=== PATIENT | female | born 1975 | race American Indian/Alaskan Native ===

== ENCOUNTER 2017-07-25 00:27 | Emergency (ER) | payer SELFPAY ==
[2017-07-25 01:21] LABS: Basophils % (Auto) 0.7 % (0.0-1.8); Eosinophils % (Auto) 2.1 % (0.0-4.3); Hematocrit 36.8 % (30.3-42.9); Hemoglobin 12.4 gm/dl (10.1-14.3); Mean Corpuscular HGB Conc 34 % (30-34); Mean Corpuscular Hemoglobin 27 pg (28-32); Mean Corpuscular Volume 80 fl (79-97); Platelet Count 213 K/mm3 (140-440); Red Blood Count 4.59 M/mm3 (3.65-5.03); Red Cell Distribution Width 12.7 % (13.2-15.2); White Blood Count 5.7 K/mm3 (4.5-11.0)
[2017-07-25 01:37] LABS: Alanine Aminotransferase 12 units/L (7-56); Albumin 4.4 g/dL (3.9-5); Albumin/Globulin Ratio 1.3 %; Alkaline Phosphatase 66 units/L (35-129); Anion Gap 18 mmol/L; BUN/Creatinine Ratio 14.28; Blood Urea Nitrogen 10 mg/dL (7-17); Calcium 9.4 mg/dL (8.4-10.2); Carbon Dioxide 25 mmol/L (22-30); Chloride 100.3 mmol/L (98-107); Glucose 108 mg/dL (65-100); Lipase 32 units/L (13-60); Potassium 3.7 mmol/L (3.6-5.0); Sodium 140 mmol/L (137-145); Total Protein 7.9 g/dL (6.3-8.2)
[2017-07-25 02:03] LABS: Bacteria,Urine 2+ /HPF (Negative); Bilirubin,Urine NEG (Negative); Blood,Urine NEG (Negative); Ketones,Urine TR mg/dL (Negative); Leukocyte Esterase,Urine MOD (Negative); Mucus,Urine FEW /HPF; Nitrite,Urine NEG (Negative); Protein,Urine <15 mg/dL mg/dL (Negative)
[2017-07-25] MEDS ORDERED: TORADOL IM ONE (09:52)
[2017-07-25] MEDS ORDERED: ULTRAM PO ONE (09:52)
[2017-07-25] MEDS ORDERED: MACROBID PO ONE (09:52)
--- NOTE | 2017-07-25 11:57 | Emergency Department Report ---
ED Female HPI - General Chief complaint: Abdominal Pain Stated complaint: SKIN RASH Time Seen by Provider: 07/25/17 09:42 Source: patient Mode of arrival: Ambulatory Limitations: No Limitations - History of Present Illness Initial comments: 41-year-old female with a past medical history is as it has anything alert pain 4 days. Pain is a intermittent stabbing pain worse with palpation. Radial is 6/10 in intensity. No relieving factors. Positive bowel older to her urine but she denies dysuria, frequency, fever, nausea, vomiting, or discharge. The last 4 days patient has had a rash that seems to be spreading. Rash is mildly pruritic. PMD: None - Related Data Previous Rx's Medication Instructions Recorded Last Taken Type Ibuprofen [Motrin] 800 mg PO Q8HR PRN #30 tablet 07/25/17 Unknown Rx Nitrofurantoin [place]/M-Cryst 100 mg PO Q12HR #14 capsule 07/25/17 Unknown Rx [Macrobid CAP] traMADol [Ultram 50 MG tab] 50 mg PO Q6HR PRN #20 tablet 07/25/17 Unknown Rx Allergies Allergy/AdvReac Type Severity Reaction Status Date / Time No Known Allergies Allergy Verified 07/25/17 00:36 ED Review of Systems ROS: Stated complaint: SKIN RASH Other details as noted in HPI Comment: All other systems reviewed and negative Other: Constitutional: No fevers chills Eyes: No eye pain visual changes ENT: No ear pain or throat pain Neck: Denies pain Respiratory: Denies cough wheezing shortness of breath Cardiovascular: Denies chest pain, palpitations, syncope GI: as per hpi : Denies dysuria Musculoskeletal: Denies back pain Skin: As per HPI Neurologic: Denies headache, numbness, weakness Psychiatric: Denies suicidal ideation, hallucinations ED Past Medical Hx - Past Medical History Previous Medical History?: No - Surgical History Past Surgical History?: No - Social History Smoking Status: Never Smoker Substance Use Type: None - Medications Home Medications: Home Medications Medication Instructions Recorded Confirmed Last Taken Type Ibuprofen [Motrin] 800 mg PO Q8HR PRN #30 tablet 07/25/17 Unknown Rx Nitrofurantoin [place]/M-Cryst 100 mg PO Q12HR #14 capsule 07/25/17 Unknown Rx [Macrobid CAP] traMADol [Ultram 50 MG tab] 50 mg PO Q6HR PRN #20 tablet 07/25/17 Unknown Rx ED Physical Exam - General Limitations: No Limitations - Other Other exam information: General: No limitations, patient is alert in no acute distress Head exam: Atraumatic, normocephalic Eyes exam: Normal appearance ENT: Moist mucous membrane, normal oropharynx Neck exam: Normal inspection, full range of motion, no meningismus nontender Respiratory exam: Clear to auscultation bilateral, no wheezes, rales, crackles Cardiovascular: Normal rate and rhythm, normal heart sounds Abdomen: Soft, nondistended, suprapubic tenderness with normal bowel sounds, no rebound, or guarding Extremity: Full range of motion normal inspection no deformity Back: Normal Inspection, full range of motion, no tenderness Neurologic: Alert, oriented x3, cranial nerves intact, no motor or sensory deficit Psychiatric: normal affect, normal mood Skin: Scattered areas of raised plaque-like circular dark discolored lesions. Mildly pruritic. No warmth, or erythema. ED Course Vital Signs 07/25/17 07/25/17 07/25/17 00:32 00:36 08:51 Temperature 98.1 F 98.1 F Pulse Rate 63 63 Respiratory 18 18 18 Rate Blood Pressure 117/75 117/75 O2 Sat by Pulse 97 97 100 Oximetry 07/25/17 07/25/17 08:56 12:00 Temperature Pulse Rate 73 73 Respiratory 18 18 Rate Blood Pressure 123/73 108/71 O2 Sat by Pulse 100 100 Oximetry - Reevaluation(s) Reevaluation #1: 07/25/17 Patient received Macrobid and Toradol ED Medical Decision Making - Lab Data Result diagrams: 07/25/17 00:49 07/25/17 00:49 Lab Results 07/25/17 07/25/17 07/25/17 Range/Units 00:49 00:49 00:49 WBC 5.7 (4.5-11.0) K/mm3 RBC 4.59 (3.65-5.03) M/mm3 Hgb 12.4 (10.1-14.3) gm/dl Hct 36.8 (30.3-42.9) % MCV 80 (79-97) fl MCH 27 L (28-32) pg MCHC 34 (30-34) % RDW 12.7 L (13.2-15.2) % Plt Count 213 (140-440) K/mm3 Lymph % (Auto) 33.9 (13.4-35.0) % [place] % (Auto) 6.7 (0.0-7.3) % Eos % (Auto) 2.1 (0.0-4.3) % Baso % (Auto) 0.7 (0.0-1.8) % Lymph # 1.9 (1.2-5.4) K/mm3 Butler # 0.4 (0.0-0.8) K/mm3 Eos # 0.1 (0.0-0.4) K/mm3 Baso # 0.0 (0.0-0.1) K/mm3 Seg Neutrophils % 56.6 (40.0-70.0) % Seg Neutrophils # 3.2 (1.8-7.7) K/mm3 Sodium 140 (137-145) mmol/L Potassium 3.7 (3.6-5.0) mmol/L Chloride 100.3 (98-107) mmol/L Carbon Dioxide 25 (22-30) mmol/L Anion Gap 18 mmol/L BUN 10 (7-17) mg/dL Creatinine 0.7 (0.7-1.2) mg/dL Estimated GFR > 60 ml/min BUN/Creatinine Ratio 14.28 % Glucose 108 H (65-100) mg/dL Calcium 9.4 (8.4-10.2) mg/dL Total Bilirubin 0.30 (0.1-1.2) mg/dL AST 15 (5-40) units/L ALT 12 (7-56) units/L Alkaline Phosphatase 66 (35-129) units/L Total Protein 7.9 (6.3-8.2) g/dL Albumin 4.4 (3.9-5) g/dL Albumin/Globulin Ratio 1.3 % Lipase 32 (13-60) units/L HCG, Qual Negative (Negative) Urine Color (Yellow) Urine Turbidity (Clear) Urine pH (5.0-7.0) Ur Specific [employer] (1.003-1.030) Urine Protein (Negative) mg/dL Urine Glucose (UA) (Negative) mg/dL Urine Ketones (Negative) mg/dL Urine Blood (Negative) Urine Nitrite (Negative) Urine Bilirubin (Negative) Urine Urobilinogen (<2.0) mg/dL Ur Leukocyte Esterase (Negative) Urine WBC (Auto) (0.0-6.0) /HPF Urine RBC (Auto) (0.0-6.0) /HPF U Epithel Cells (Auto) (0-13.0) /HPF Urine Bacteria (Auto) (Negative) /HPF Urine Mucus /HPF 07/25/17 Range/Units 01:18 WBC (4.5-11.0) K/mm3 RBC (3.65-5.03) M/mm3 Hgb (10.1-14.3) gm/dl Hct (30.3-42.9) % MCV (79-97) fl MCH (28-32) pg MCHC (30-34) % RDW (13.2-15.2) % Plt Count (140-440) K/mm3 Lymph % (Auto) (13.4-35.0) % [place] % (Auto) (0.0-7.3) % Eos % (Auto) (0.0-4.3) % Baso % (Auto) (0.0-1.8) % Lymph # (1.2-5.4) K/mm3 [place] # (0.0-0.8) K/mm3 Eos # (0.0-0.4) K/mm3 Baso # (0.0-0.1) K/mm3 Seg Neutrophils % (40.0-70.0) % Seg Neutrophils # (1.8-7.7) K/mm3 Sodium (137-145) mmol/L Potassium (3.6-5.0) mmol/L Chloride (98-107) mmol/L Carbon Dioxide (22-30) mmol/L Anion Gap mmol/L BUN (7-17) mg/dL Creatinine (0.7-1.2) mg/dL Estimated GFR ml/min BUN/Creatinine Ratio % Glucose (65-100) mg/dL Calcium (8.4-10.2) mg/dL Total Bilirubin (0.1-1.2) mg/dL AST (5-40) units/L ALT (7-56) units/L Alkaline Phosphatase (35-129) units/L Total Protein (6.3-8.2) g/dL Albumin (3.9-5) g/dL Albumin/Globulin Ratio % Lipase (13-60) units/L HCG, Qual (Negative) Urine Color Yellow (Yellow) Urine Turbidity Slightly-cloudy (Clear) Urine pH 6.0 (5.0-7.0) Ur Specific [employer] 1.016 (1.003-1.030) Urine Protein <15 mg/dl (Negative) mg/dL Urine Glucose (UA) Neg (Negative) mg/dL Urine Ketones Tr (Negative) mg/dL Urine Blood Neg (Negative) Urine Nitrite Neg (Negative) Urine Bilirubin Neg (Negative) Urine Urobilinogen 4.0 (<2.0) mg/dL Ur Leukocyte Esterase Mod (Negative) Urine WBC (Auto) 28.0 H (0.0-6.0) /HPF Urine RBC (Auto) 3.0 (0.0-6.0) /HPF U Epithel Cells (Auto) 5.0 (0-13.0) /HPF Urine Bacteria (Auto) 2+ (Negative) /HPF Urine Mucus Few /HPF - Medical Decision Making Plan to discharge patient home with treatment for UTI given positive urine findings. I'm unsure of the cause of her rash at this time but it does not appear to be life-threatening. Patient will be advised to follow up with dermatology . - Differential Diagnosis uti, cervicitis, vaginitis, tinea,, pityriasis, Critical Care Time: No Critical care attestation.: If time is entered above; I have spent that time in minutes in the direct care of this critically ill patient, excluding procedure time. ED Disposition Clinical Impression: UTI (urinary tract infection), Rash Disposition: DC-01 TO HOME OR SELFCARE Is pt being admited?: No Does the pt Need Aspirin: No Condition: Stable Instructions: Acute Rash (ED), Urinary Tract Infection in Women (ED) Additional Instructions: Take the medication as prescribed. Return if symptoms worsen. Follow-up with a manager motor for further evaluation of your rash. Also follow-up with the primary care doctor Prescriptions: Ibuprofen [Motrin] 800 mg PO Q8HR PRN #30 tablet PRN Reason: Pain Nitrofurantoin [place]/M-Cryst [Macrobid CAP] 100 mg PO Q12HR #14 capsule traMADol [Ultram 50 MG tab] 50 mg PO Q6HR PRN #20 tablet PRN Reason: Pain Referrals: PRIMARY CARE, [Primary Care Provider] - 3-5 Days Adarsh Vasques [Other] - 3-5 Days [facility] [Provider Group] - 3-5 Days Time of Disposition: 12:49
[2017-07-25 12:40] VITALS: BP 108/71
== END 2017-07-25 13:12 | disposition home or self-care (01) ==
LOC: ED 00:27
DX: N39.0 Urinary tract infection, site not specified (principal)
CPT/HCPCS: 36415; 80053; 81001; 83690; 84703; 85025; 96372; 99283; J1885

== ENCOUNTER 2018-08-25 20:29 | Emergency (ER) | payer MEDICAID ==
[2018-08-25 20:36] VITALS: BP 128/69
[2018-08-25] MEDS ORDERED: BENADRYL PO ONE (21:22)
[2018-08-25] MEDS ORDERED: ULTRAM PO ONE (21:22)
--- NOTE | 2018-08-25 21:28 | Emergency Department Report ---
ED Headache HPI - General Chief Complaint: Headache Stated Complaint: MIGRAINE Time Seen by Provider: 08/25/18 21:20 - History of Present Illness Initial Comments: pt is a 42 y/o aaf with who presents for right frontal headache that was initiated by right eye pain itching and discharge times this am, pain is 4/10 sharp aching right yellow green drainage, and blurred vision there is hx of headache in past same location with out eye drainage, there is no fever no chills no n/v mild photophobia no dizziness no light headedness pt drove self to ed is ambulatory with steady gait, Timing/Duration: 24 hours Quality: moderate Head Injury Location: frontal Recent Head Trauma: no recent headache/trauma, occasional headaches Associated Symptoms: other (eye irritation and drainage ) Allergies/Adverse Reactions: Allergies No Known Allergies Allergy (Verified 07/25/17 00:36) Home Medications: Ambulatory Orders Ibuprofen [Motrin] 800 mg PO Q8HR PRN #30 tablet 07/25/17 Nitrofurantoin [place]/M-Cryst [Macrobid CAP] 100 mg PO Q12HR #14 capsule 07/25/17 traMADol [Ultram 50 MG tab] 50 mg PO Q6HR PRN #20 tablet 07/25/17 Cetirizine HCl [ZyrTEC] 10 mg PO DAILY #30 capsule 08/25/18 Ibuprofen 800 mg PO TID PRN #30 tablet 08/25/18 Polymyxin B Sulf/Trimethoprim [Polytrim Eye Drops] 10 ml OP Q4H 10 Days #10 ml 08/25/18 ED Review of Systems ROS: Stated complaint: MIGRAINE Other details as noted in HPI Constitutional: denies: chills, fever Eyes: eye pain, eye discharge, other (blurred vision ) ENT: denies: ear pain, throat pain Respiratory: denies: cough, shortness of breath, wheezing Cardiovascular: denies: chest pain, palpitations Endocrine: no symptoms reported Gastrointestinal: denies: abdominal pain, nausea, diarrhea Genitourinary: denies: urgency, dysuria, discharge Musculoskeletal: denies: back pain, joint swelling, arthralgia Skin: denies: rash, lesions Neurological: headache. denies: weakness, numbness, paresthesias, abnormal gait , vertigo Psychiatric: denies: anxiety, depression Hematological/Lymphatic: denies: easy bleeding, easy bruising ED Past Medical Hx - Past Medical History Previous Medical History?: No - Surgical History Past Surgical History?: No - Social History Smoking Status: Never Smoker Substance Use Type: Alcohol - Medications Home Medications: Home Medications Medication Instructions Recorded Confirmed Last Taken Type Ibuprofen [Motrin] 800 mg PO Q8HR PRN #30 tablet 07/25/17 Unknown Rx Nitrofurantoin [place]/M-Cryst 100 mg PO Q12HR #14 capsule 07/25/17 Unknown Rx [Macrobid CAP] traMADol [Ultram 50 MG tab] 50 mg PO Q6HR PRN #20 tablet 07/25/17 Unknown Rx Cetirizine HCl [ZyrTEC] 10 mg PO DAILY #30 capsule 08/25/18 Unknown Rx Ibuprofen 800 mg PO TID PRN #30 tablet 08/25/18 Unknown Rx Polymyxin B Sulf/Trimethoprim 10 ml OP Q4H 10 Days #10 ml 08/25/18 Unknown Rx [Polytrim Eye Drops] ED Physical Exam - General Limitations: No Limitations General appearance: alert, in no apparent distress - Head Head exam: Present: atraumatic, normocephalic - Eye Eye exam: Present: PERRL, EOMI, conjunctival injection. Absent: nystagmus - Expanded Eye Exam Expanded Pupils: Regular, Round: Bilateral, Reactive: Bilateral Sclera/Conjunctival: Injection: Bilateral, Exudate: Right (yellow green drainage ) Anterior chamber: Normal Inspection: Bilateral Visual acuity (R) = 20/: 20 Visual acuity (L) = 20/: 20 IOP (R) in mmH IOP (L) in mmH - ENT ENT exam: Present: normal orophraynx, mucous membranes moist, TM's normal bilaterally, normal external ear exam - Neck Neck exam: Present: normal inspection, full ROM. Absent: tenderness, thyromegaly - Respiratory Respiratory exam: Present: normal lung sounds bilaterally, respiratory distress - Cardiovascular Cardiovascular Exam: Present: regular rate, normal rhythm. Absent: systolic murmur, diastolic murmur, rubs, gallop - GI/Abdominal GI/Abdominal exam: Present: soft, normal bowel sounds - Rectal Rectal exam: Present: deferred - Extremities Exam Extremities exam: Present: normal inspection - Back Exam Back exam: Present: normal inspection - Neurological Exam Neurological exam: Present: alert, oriented X3 - Psychiatric Psychiatric exam: Present: normal affect, normal mood - Skin Skin exam: Present: warm, dry, intact, normal color. Absent: rash ED Course Vital Signs 08/25/18 08/25/18 20:33 20:42 Temperature 99.1 F 99.1 F Pulse Rate 70 71 Respiratory 18 18 Rate Blood Pressure 128/69 128/69 O2 Sat by Pulse 98 98 Oximetry ED Medical Decision Making - Medical Decision Making this is conjunctivitis with headache pain is improved after eye exam vision s202 /0 bilat, no foreign body noted to eye exam mild conjunctiviitis eyelid inverted swept, IOP: 14mm/hg tonopen, right, no corneal abrasion on exam hill lamp headach is improving, plan: NSAIDS, Zyrtec, polytrim, follow up with opthalmology in 2-3 days follow up with pcp in 2-3 days pt verbalized agreement and understanding of discharge plan. Critical care attestation.: If time is entered above; I have spent that time in minutes in the direct care of this critically ill patient, excluding procedure time. ED Disposition Clinical Impression: Conjunctivitis Qualifiers: Conjunctivitis type: acute Acute conjunctivitis type: bacterial Laterality: right Qualified Code(s): H10.31 - Unspecified acute conjunctivitis, right eye Headache Qualifiers: Headache type: unspecified Headache chronicity pattern: acute headache Intractability: not intractable Qualified Code(s): R51 - Headache Disposition: DC-01 TO HOME OR SELFCARE Is pt being admited?: No Does the pt Need Aspirin: No Condition: Good Instructions: Conjunctivitis (ED), Acute Headache (ED) Prescriptions: Cetirizine HCl [ZyrTEC] 10 mg PO DAILY #30 capsule Ibuprofen 800 mg PO TID PRN #30 tablet PRN Reason: pain Polymyxin B Sulf/Trimethoprim [Polytrim Eye Drops] 10 ml OP Q4H 10 Days #10 ml Referrals: PRIMARY CARE,MD [Primary Care Provider] - 3-5 Days Forms: Work/School Release Form(ED) Time of Disposition: 21:39
== END 2018-08-25 21:46 | disposition home or self-care (01) ==
LOC: ED 20:29
DX: H10.31 Unspecified acute conjunctivitis, right eye (principal); R51 Headache
CPT/HCPCS: 99283

== ENCOUNTER 2019-03-05 09:35 | Emergency (ER) | payer SELFPAY ==
[2019-03-05] MEDS ORDERED: CLEOCIN 900 MG/50 mL 900 MG/50 ML BAG IV ONE (10:09)
[2019-03-05] MEDS ORDERED: NACL 0.9% 1000 ML 1,000 ML IV ONE (10:09)
[2019-03-05] MEDS ORDERED: DECADRON 20 MG in NACL 0.9% 50 ML IV STA (10:11)
[2019-03-05 10:41] LABS: Basophils % (Auto) 0.5 % (0.0-1.8); Eosinophils # (Auto) 0.1 K/mm3 (0.0-0.4); Eosinophils % (Auto) 0.6 % (0.0-4.3); Hematocrit 35.6 % (30.3-42.9); Hemoglobin 12.1 gm/dl (10.1-14.3); Lymphocytes # (Auto) 1.4 K/mm3 (1.2-5.4); Lymphocytes % (Auto) 14.2 % (13.4-35.0); Mean Corpuscular HGB Conc 34 % (30-34); Mean Corpuscular Volume 81 fl (79-97); Monocytes # (Auto) 0.7 K/mm3 (0.0-0.8); Monocytes % (Auto) 6.8 % (0.0-7.3); Platelet Count 221 K/mm3 (140-440); Red Cell Distribution Width 13.1 % (13.2-15.2)
[2019-03-05 10:42] LABS: BUN/Creatinine Ratio 10; Blood Urea Nitrogen 6 mg/dL (7-17); Hemolysis Index 7
[2019-03-05] MEDS ORDERED: ZOFRAN IV ONE (11:17)
[2019-03-05] MEDS ORDERED: TORADOL IV ONE (11:17)
[2019-03-05] MEDS ORDERED: MORPHINE IV ONE (11:17)
--- NOTE | 2019-03-05 12:39 | Cat Scan Report ---
PROCEDURE: CT NECK W CON TECHNIQUE: CT of the neck performed. IV contrast administered. Axial images and coronal and sagittal reformatted images were obtained. HISTORY: peritonsillar abscess COMPARISON: None FINDINGS: There is enlargement of the left tonsil. There is mucosal/submucosal edema involving the left orophar ynx and hypopharynx. There is also edematous enlargement of the uvula. There is some left parapharyng eal edema as well as some edema in the retropharyngeal region. No discrete abscess identified. The epiglottis may be minimally edematous as well. Parotid glands are symmetric and unremarkable. Submandibular glands are unremarkable. The paranasal sinuses are clear. Thyroid gland is unremarkable. IMPRESSION: There is some left tonsillar enlargement. There is a left sided oropharyngeal and hypoph aryngeal mucosal/submucosal edema as well as left-sided parapharyngeal and retropharyngeal edema. No abscess seen. The uvula is also edematous and enlarged. The epiglottis may be mildly edematous as wel l but not greatly enlarged. This document is electronically signed by Francoise Phillips MD., March 05 2019 12:37:32 PM ET
--- NOTE | 2019-03-05 12:59 | Emergency Department Report ---
ED General Adult HPI - General Chief complaint: Sore Throat Stated complaint: THROAT PAIN/CANT SWALLOW Time Seen by Provider: 03/05/19 10:01 Source: patient Mode of arrival: Ambulatory Limitations: No Limitations - History of Present Illness Initial comments: Ms. Juarez is a 43-year-old female presents with severe sore throat and trouble swallowing. She also has swelling in the left neck. Symptoms began one week ago with flulike symptoms. She had diarrhea vomiting generalized malaise. She also had a sick contact with influenza. She now over the last day has sore throat. -: Gradual, days(s) (1) Severity scale (0 -10): 5 Quality: aching Consistency: constant Worsens with: other (swallowing) Associated Symptoms: malaise - Related Data Previous Rx's Medication Instructions Recorded Last Taken Type Ibuprofen [Motrin] 800 mg PO Q8HR PRN #30 tablet 07/25/17 Unknown Rx Nitrofurantoin [place]/M-Cryst 100 mg PO Q12HR #14 capsule 07/25/17 Unknown Rx [Macrobid CAP] traMADol [Ultram 50 MG tab] 50 mg PO Q6HR PRN #20 tablet 07/25/17 Unknown Rx Cetirizine HCl [ZyrTEC] 10 mg PO DAILY #30 capsule 08/25/18 Unknown Rx Ibuprofen 800 mg PO TID PRN #30 tablet 08/25/18 Unknown Rx Polymyxin B Sulf/Trimethoprim 10 ml OP Q4H 10 Days #10 ml 08/25/18 Unknown Rx [Polytrim Eye Drops] HYDROcodone/APAP 5-325 [[place] 1 each PO Q6HR PRN #15 tablet 03/05/19 Unknown Rx 5/325] Penicillin V Potassium 500 mg PO QID 10 Days #40 tablet 03/05/19 Unknown Rx Allergies Allergy/AdvReac Type Severity Reaction Status Date / Time No Known Allergies Allergy Verified 03/05/19 09:36 ED Review of Systems ROS: Stated complaint: THROAT PAIN/CANT SWALLOW Other details as noted in HPI Comment: All other systems reviewed and negative Constitutional: chills, malaise. denies: fever ENT: throat pain Gastrointestinal: nausea, vomiting, diarrhea ED Past Medical Hx - Past Medical History Previous Medical History?: No - Surgical History Past Surgical History?: No - Social History Smoking Status: Never Smoker Substance Use Type: None - Medications Home Medications: Home Medications Medication Instructions Recorded Confirmed Last Taken Type Ibuprofen [Motrin] 800 mg PO Q8HR PRN #30 tablet 07/25/17 Unknown Rx Nitrofurantoin [place]/M-Cryst 100 mg PO Q12HR #14 capsule 07/25/17 Unknown Rx [Macrobid CAP] traMADol [Ultram 50 MG tab] 50 mg PO Q6HR PRN #20 tablet 07/25/17 Unknown Rx Cetirizine HCl [ZyrTEC] 10 mg PO DAILY #30 capsule 08/25/18 Unknown Rx Ibuprofen 800 mg PO TID PRN #30 tablet 08/25/18 Unknown Rx Polymyxin B Sulf/Trimethoprim 10 ml OP Q4H 10 Days #10 ml 08/25/18 Unknown Rx [Polytrim Eye Drops] HYDROcodone/APAP 5-325 [[place] 1 each PO Q6HR PRN #15 tablet 03/05/19 Unknown Rx 5/325] Penicillin V Potassium 500 mg PO QID 10 Days #40 tablet 03/05/19 Unknown Rx ED Physical Exam - General Limitations: No Limitations General appearance: alert, in no apparent distress - Head Head exam: Present: atraumatic, normocephalic - Eye Eye exam: Present: normal appearance - ENT ENT exam: Present: other (edematous deviated uvula left tonsillar edematous larger than right, exudates bilaterally ) - Neck Neck exam: Present: full ROM, lymphadenopathy (left submandibular). Absent: meningismus - Respiratory Respiratory exam: Present: normal lung sounds bilaterally. Absent: respiratory distress, wheezes, rales, rhonchi - Cardiovascular Cardiovascular Exam: Present: regular rate, normal rhythm, normal heart sounds. Absent: systolic murmur, diastolic murmur, rubs, gallop - GI/Abdominal GI/Abdominal exam: Present: soft, normal bowel sounds. Absent: distended, tenderness, guarding, rebound - Extremities Exam Extremities exam: Present: normal inspection - Back Exam Back exam: Present: normal inspection - Neurological Exam Neurological exam: Present: alert, oriented X3 - Psychiatric Psychiatric exam: Present: normal affect, normal mood - Skin Skin exam: Present: warm, dry, intact, normal color. Absent: rash ED Course Vital Signs 03/05/19 09:44 Temperature 99.3 F Pulse Rate 97 H Respiratory 16 Rate Blood Pressure 133/82 O2 Sat by Pulse 98 Oximetry ED Medical Decision Making - Lab Data Result diagrams: 03/05/19 10:10 03/05/19 10:10 - Radiology Data Radiology results: report reviewed Left tonsillar enlargement, pharyngeal uvula enlargement or retropharyngeal enlargement no abscess - Medical Decision Making Acute pharyngitis without peritonsillar or neck abscess. Prescribed penicillin and norco. Critical care attestation.: If time is entered above; I have spent that time in minutes in the direct care of this critically ill patient, excluding procedure time. ED Disposition Clinical Impression: Acute pharyngitis Disposition: DC- TO HOME OR SELFCARE Is pt being admited?: No Does the pt Need Aspirin: No Condition: Stable Instructions: Pharyngitis (ED) Prescriptions: HYDROcodone/APAP 5-325 [[place] 5/325] 1 each PO Q6HR PRN #15 tablet PRN Reason: Pain Penicillin V Potassium 500 mg PO QID 10 Days #40 tablet Referrals: CONRAD PECK MD [Primary Care Provider] - 3-5 Days Forms: Work/School Release Form(ED)
[2019-03-05 13:21] VITALS: BP 122/75
== END 2019-03-05 13:19 | disposition home or self-care (01) ==
LOC: ED 09:35
DX: J02.9 Acute pharyngitis, unspecified (principal); R19.7 Diarrhea, unspecified
CPT/HCPCS: 36415; 70491; 80048; 85025; 96365; 96367; 96375; 99284; J1100; J1885; J2270; J2405; J7030; Q9967

== ENCOUNTER 2019-04-07 22:37 | Emergency (ER) | payer OTHER, MEDICAID ==
[2019-04-07 23:38] VITALS: BP 130/79
[2019-04-08] MEDS ORDERED: TORADOL IM ONE (03:02)
[2019-04-08] MEDS ORDERED: DECADRON IM ONE (03:02)
--- NOTE | 2019-04-08 05:17 | Emergency Department Report ---
ED Neck Pain/Injury HPI - General Chief Complaint: Neck Pain/Injury Stated Complaint: STIFF NECK/PAIN, HEADACHE Time Seen by Provider: 04/08/19 02:45 Source: patient Mode of arrival: Ambulatory Limitations: No Limitations - History of Present Illness Initial Comments: Patient is a 43-year-old, AA female with no past medical history presents to the ED with complaint of acute onset nontraumatic severe neck pain for the last 3 days. Patient states that she is unable to perform any activities range of motion with her neck especially turning on the right. Patient denies fall, traumatic injury, heavy lifting, as it is, headache, chest pain, shortness of breath, numbness and tingling of the upper extremities bilaterally, change in vision, nausea and vomiting. Patient states that she's been taking [id number] pain medications with no relief. MD Complaint: neck pain -: Sudden, days(s) (3) Place: home Radiation: right lateral, head, right shoulder Severity: constant Severity scale (0 -10): 8 Quality: burning, sharp, aching Consistency: constant Improves With: none Worsens With: movement of neck Context: unknown (spontaneous) Associated Symptoms: headache, tingling. denies: fever, numbness, weakness, difficulty walking, swollen glands, difficulty swallowing, nausea, vomiting Treatments Prior to Arrival: Acetaminophen - Related Data Previous Rx's Medication Instructions Recorded Last Taken Type Ibuprofen [Motrin] 800 mg PO Q8HR PRN #30 tablet 07/25/[address] [place]/M-Cryst 100 mg PO Q12HR #14 capsule 07/25/17 Unknown Rx [Macrobid CAP] traMADol [Ultram 50 MG tab] 50 mg PO Q6HR PRN #20 tablet 07/25/17 Unknown Rx Cetirizine HCl [ZyrTEC] 10 mg PO DAILY #30 capsule 08/25/18 Unknown Rx Ibuprofen 800 mg PO TID PRN #30 tablet 08/25/18 Unknown Rx Polymyxin B Sulf/Trimethoprim 10 ml OP Q4H 10 Days #10 ml 08/25/18 Unknown Rx [Polytrim Eye Drops] HYDROcodone/APAP 5-325 [[place] 1 each PO Q6HR PRN #15 tablet 03/05/19 Unknown Rx 5/325] Penicillin V Potassium 500 mg PO QID 10 Days #40 tablet 03/05/19 Unknown Rx Baclofen 20 mg PO Q8H PRN #30 tablet 04/08/19 Unknown Rx Ketorolac [Toradol] 10 mg PO Q8H PRN #20 tablet 04/08/19 Unknown Rx predniSONE [Deltasone] 60 mg PO QDAY #15 tab 04/08/19 Unknown Rx traMADol [Ultram] 50 mg PO Q6HR PRN #12 tablet 04/08/19 Unknown Rx Allergies Allergy/AdvReac Type Severity Reaction Status Date / Time No Known Allergies Allergy Verified 03/05/19 09:36 ED Review of Systems ROS: Stated complaint: STIFF NECK/PAIN, HEADACHE Other details as noted in HPI Comment: All other systems reviewed and negative Constitutional: no symptoms reported, see HPI. denies: chills, diaphoresis, fever, malaise Eyes: as per HPI. denies: eye pain, eye discharge, vision change ENT: as per HPI. denies: ear pain, throat pain, dental pain, hearing loss Respiratory: no symptoms reported, see HPI. denies: cough, orthopnea, shortness of breath, SOB with exertion, SOB at rest Cardiovascular: as per HPI. denies: chest pain, palpitations, dyspnea on exertion, orthopnea, edema, syncope, paroxysmal nocturnal dyspnea Endocrine: no symptoms reported, see HPI. denies: flushing, intolerance to heat, increased hunger, increased thirst, increased urine, unexplained weight gain Gastrointestinal: as per HPI. denies: abdominal pain, nausea, vomiting, diarrhea, constipation Genitourinary: as per HPI. denies: urgency, dysuria, frequency, hematuria, abnormal menses Musculoskeletal: as per HPI, arthralgia (neck pain), other (neck pain that radiates to right shoulder and upper back). denies: back pain, joint swelling Skin: as per HPI. denies: rash, lesions, change in color, change in hair/nails Neurological: as per HPI, headache, paresthesias (left forearm and shoulder tingling sensations). denies: weakness, numbness, confusion, abnormal gait, vertigo, other Psychiatric: as per HPI. denies: anxiety, depression, visual hallucinations Hematological/Lymphatic: as per HPI ED Past Medical Hx - Past Medical History Previous Medical History?: No - Surgical History Past Surgical History?: No - Social History Smoking Status: Light Tobacco Smoker Substance Use Type: Alcohol - Medications Home Medications: Home Medications Medication Instructions Recorded Confirmed Last Taken Type Ibuprofen [Motrin] 800 mg PO Q8HR PRN #30 tablet 07/25/[address] [place]/M-Cryst 100 mg PO Q12HR #14 capsule 07/25/17 Unknown Rx [Macrobid CAP] traMADol [Ultram 50 MG tab] 50 mg PO Q6HR PRN #20 tablet 07/25/17 Unknown Rx Cetirizine HCl [ZyrTEC] 10 mg PO DAILY #30 capsule 08/25/18 Unknown Rx Ibuprofen 800 mg PO TID PRN #30 tablet 08/25/18 Unknown Rx Polymyxin B Sulf/Trimethoprim 10 ml OP Q4H 10 Days #10 ml 08/25/18 Unknown Rx [Polytrim Eye Drops] HYDROcodone/APAP 5-325 [[place] 1 each PO Q6HR PRN #15 tablet 03/05/19 Unknown Rx 5/325] Penicillin V Potassium 500 mg PO QID 10 Days #40 tablet 03/05/19 Unknown Rx Baclofen 20 mg PO Q8H PRN #30 tablet 04/08/19 Unknown Rx Ketorolac [Toradol] 10 mg PO Q8H PRN #20 tablet 04/08/19 Unknown Rx predniSONE [Deltasone] 60 mg PO QDAY #15 tab 04/08/19 Unknown Rx traMADol [Ultram] 50 mg PO Q6HR PRN #12 tablet 04/08/19 Unknown Rx ED Physical Exam - General Limitations: No Limitations General appearance: alert, in no apparent distress - Head Head exam: Present: atraumatic, normocephalic, normal inspection - Eye Eye exam: Present: normal appearance, PERRL, EOMI Pupils: Present: normal accommodation - ENT ENT exam: Present: normal exam, normal orophraynx, mucous membranes moist, TM's normal bilaterally, normal external ear exam - Neck Neck exam: Present: normal inspection, tenderness (cervical paraspinal musculoskeletal tenderness with limited ROM due to pain). Absent: meningismus, full ROM (due to pain), lymphadenopathy, thyromegaly - Respiratory Respiratory exam: Present: normal lung sounds bilaterally. Absent: respiratory distress, wheezes, rales, chest wall tenderness, accessory muscle use, prolonged expiratory - Cardiovascular Cardiovascular Exam: Present: regular rate, normal rhythm, normal heart sounds - GI/Abdominal GI/Abdominal exam: Present: soft, normal bowel sounds. Absent: distended, tenderness, guarding, hyperactive bowel sounds, hypoactive bowel sounds, organomegaly - Rectal Rectal exam: Present: deferred - Extremities Exam Extremities exam: Present: normal inspection, full ROM, tenderness (mild right shoulder and arm tenderness), normal capillary refill. Absent: pedal edema, joint swelling, calf tenderness - Back Exam Back exam: Present: normal inspection, tenderness (Mild upper posterior thoracic paraspinal tenderness), muscle spasm, paraspinal tenderness. Absent: CVA tenderness (R), CVA tenderness (L), vertebral tenderness - Neurological Exam Neurological exam: Present: alert, oriented X3, CN II-XII intact, normal gait, reflexes normal - Psychiatric Psychiatric exam: Present: normal affect - Skin Skin exam: Present: warm, dry, intact ED Course Vital Signs 04/07/19 23:20 Temperature 98.2 F Pulse Rate 73 Respiratory 18 Rate Blood Pressure 130/79 O2 Sat by Pulse 96 Oximetry - Reevaluation(s) Reevaluation #1: 04/08/19 05:20 Patient is alert and oriented 3 and is not in distress. Patient was treated for pain in the ED for acute torticollis. On reevaluation, patient's pain is well controlled, patient fell asleep in the ED and slept well and no d ifficulties. Patient's symptoms are likely due to acute muscle strain of the neck or torticollis. Patient was discharged home on pain medications and muscle relaxants and advised to follow up with her primary care physician in 5-7 days for reevaluation. Patient was advised to return to the ED immediately if symptoms get worse. ED Medical Decision Making - Medical Decision Making Patient is alert and oriented 3 and is not in distress. Patient was treated for pain in the ED for acute torticollis. On reevaluation, patient's pain is well controlled, patient fell asleep in the ED and slept well and no difficulties. Patient's symptoms are likely due to acute muscle strain of the neck or torticollis. Patient was discharged home on pain medications and muscle relaxants and advised to follow up with her primary care physician in 5-7 days for reevaluation. Patient was advised to return to the ED immediately if symptoms get worse. - Differential Diagnosis Acute torticollis, Muscle spasm neck Critical care attestation.: If time is entered above; I have spent that time in minutes in the direct care of this critically ill patient, excluding procedure time. ED Disposition Clinical Impression: Cervical paraspinal muscle spasm, Acute torticollis Disposition: TO HOME OR SELFCARE Is pt being admited?: No Does the pt Need Aspirin: No Condition: Stable Instructions: Spasmodic Torticollis (ED), Cervical Sprain (ED) Additional Instructions: Take medications with food, drink plenty of fluids and follow-up with your primary care physician in 5-7 days for reevaluation. Return to the ED immediately if symptoms get worse. Prescriptions: Baclofen 20 mg PO Q8H PRN #30 tablet PRN Reason: Spasms predniSONE [Deltasone] 60 mg PO QDAY #15 tab Ketorolac [Toradol] 10 mg PO Q8H PRN #20 tablet PRN Reason: Pain traMADol [Ultram] 50 mg PO Q6HR PRN #12 tablet PRN Reason: Pain Referrals: JEFFREY HOWARD MD [Primary Care Provider] - 3-5 Days Time of Disposition: 05:25 Print Language: RUSSIAN
== END 2019-04-08 05:35 | disposition home or self-care (01) ==
LOC: ED 22:37
DX: M43.6 Torticollis (principal); M25.511 Pain in right shoulder; F17.200 Nicotine dependence, unspecified, uncomplicated; R51 Headache; R20.2 Paresthesia of skin
CPT/HCPCS: 96372; 99282; J1100; J1885

== ENCOUNTER 2021-01-05 19:42 | Emergency (ER) | payer MEDICAID, OTHER ==
[2021-01-05 19:59] VITALS: BP 108/65
--- NOTE | 2021-01-05 20:08 | Emergency Department Report ---
ED Female HPI - General Stated complaint: LOWER BACK/LEFT KNEE PAIN/DIZZINESS/BLEEDING Source: patient, RN notes reviewed Limitations: No Limitations - History of Present Illness Initial comments: pt is a 45 y/o aaf who presents for low back pain radiating to LLE. pt states dysuria , frequency, vaginal discharge brown malodorous, pt denies fever or chills , denies vaginal bleeding , no n/v LMP 2 months ago, there are no rel ieving factors MD Complaint: vaginal discharge, dysuria - Related Data Previous Rx's Medication Instructions Recorded Last Taken Type Ibuprofen [Motrin] 800 mg PO Q8HR PRN #30 tablet 07/25/17 Unknown Rx Nitrofurantoin [place]/M-Cryst 100 mg PO Q12HR #14 capsule 07/25/17 Unknown Rx [Macrobid CAP] traMADoL [Ultram 50 MG tab] 50 mg PO Q6HR PRN #20 tablet 07/25/17 Unknown Rx Cetirizine HCl [ZyrTEC] 10 mg PO DAILY #30 capsule 08/25/18 Unknown Rx Ibuprofen 800 mg PO TID PRN #30 tablet 08/25/18 Unknown Rx Polymyxin B Sulf/Trimethoprim 10 ml OP Q4H 10 Days #10 ml 08/25/18 Unknown Rx [Polytrim Eye Drops] HYDROcodone/APAP 5-325 [[place] 1 each PO Q6HR PRN #15 tablet 03/05/19 Unknown Rx 5/325] Penicillin V Potassium 500 mg PO QID 10 Days #40 tablet 03/05/19 Unknown Rx Baclofen 20 mg PO Q8H PRN #30 tablet 04/08/19 Unknown Rx Ketorolac [Toradol] 10 mg PO Q8H PRN #20 tablet 04/08/19 Unknown Rx predniSONE [Deltasone] 60 mg PO QDAY #15 tab 04/08/19 Unknown Rx traMADoL [Ultram] 50 mg PO Q6HR PRN #12 tablet 04/08/19 Unknown Rx Cyclobenzaprine HCl [Flexeril 5 MG 5 mg PO TID PRN #30 tab 01/05/21 Unknown Rx TAB] Menthol/Camphor [[place] 1 applicatio TP TID PRN #1 tube 01/05/21 Unknown Rx Ointment] Naproxen [Naprosyn] 500 mg PO BID PRN #30 tablet 01/05/21 Unknown Rx metroNIDAZOLE [Flagyl] 500 mg PO BID 7 Days #14 tab 01/05/21 Unknown Rx Allergies Allergy/AdvReac Type Severity Reaction Status Date / Time No Known Allergies Allergy Verified 03/05/19 09:36 ED Review of Systems ROS: Stated complaint: LOWER BACK/LEFT KNEE PAIN/DIZZINESS/BLEEDING Other details as noted in HPI Constitutional: denies: chills, fever Eyes: denies: eye pain, eye discharge, vision change ENT: denies: ear pain, throat pain Respiratory: denies: cough, shortness of breath, wheezing Cardiovascular: denies: chest pain, palpitations Endocrine: no symptoms reported Gastrointestinal: abdominal pain (left flank pain ). denies: nausea, vomiting Genitourinary: urgency, dysuria, frequency, discharge Musculoskeletal: back pain (left flank ) Skin: denies: rash, lesions Neurological: denies: headache, weakness, paresthesias Psychiatric: denies: anxiety, depression Hematological/Lymphatic: denies: easy bleeding, easy bruising ED Past Medical Hx - Social History Smoking Status: Light Tobacco Smoker Substance Use Type: Alcohol - Medications Home Medications: Home Medications Medication Instructions Recorded Confirmed Last Taken Type Ibuprofen [Motrin] 800 mg PO Q8HR PRN #30 tablet 07/25/17 Unknown Rx Nitrofurantoin [place]/M-Cryst 100 mg PO Q12HR #14 capsule 07/25/17 Unknown Rx [Macrobid CAP] traMADoL [Ultram 50 MG tab] 50 mg PO Q6HR PRN #20 tablet 07/25/17 Unknown Rx Cetirizine HCl [ZyrTEC] 10 mg PO DAILY #30 capsule 08/25/18 Unknown Rx Ibuprofen 800 mg PO TID PRN #30 tablet 08/25/18 Unknown Rx Polymyxin B Sulf/Trimethoprim 10 ml OP Q4H 10 Days #10 ml 08/25/18 Unknown Rx [Polytrim Eye Drops] HYDROcodone/APAP 5-325 [[place] 1 each PO Q6HR PRN #15 tablet 03/05/19 Unknown Rx 5/325] Penicillin V Potassium 500 mg PO QID 10 Days #40 tablet 03/05/19 Unknown Rx Baclofen 20 mg PO Q8H PRN #30 tablet 04/08/19 Unknown Rx Ketorolac [Toradol] 10 mg PO Q8H PRN #20 tablet 04/08/19 Unknown Rx predniSONE [Deltasone] 60 mg PO QDAY #15 tab 04/08/19 Unknown Rx traMADoL [Ultram] 50 mg PO Q6HR PRN #12 tablet 04/08/19 Unknown Rx Cyclobenzaprine HCl [Flexeril 5 MG 5 mg PO TID PRN #30 tab 01/05/21 Unknown Rx TAB] Menthol/Camphor [[place] 1 applicatio TP TID PRN #1 tube 01/05/21 Unknown Rx Ointment] Naproxen [Naprosyn] 500 mg PO BID PRN #30 tablet 01/05/21 Unknown Rx metroNIDAZOLE [Flagyl] 500 mg PO BID 7 Days #14 tab 01/05/21 Unknown Rx ED Physical Exam - General General appearance: alert, in no apparent distress - Head Head exam: Present: atraumatic - Eye Eye exam: Present: normal appearance - ENT ENT exam: Present: mucous membranes moist - Neck Neck exam: Present: normal inspection - Respiratory Respiratory exam: Present: normal lung sounds bilaterally. Absent: respiratory distress - Cardiovascular Cardiovascular Exam: Present: regular rate, normal rhythm. Absent: systolic murmur, diastolic murmur, rubs, gallop - GI/Abdominal GI/Abdominal exam: Present: soft, normal bowel sounds - Rectal Rectal exam: Present: deferred - External exam: Present: other (per declines vaginal exam ) - Extremities Exam Extremities exam: Present: normal inspection, full ROM - Back Exam Back exam: Present: full ROM, CVA tenderness (L). Absent: muscle spasm, paraspinal tenderness, vertebral tenderness - Expanded Back Exam Expanded Back exam: Absent: saddle anesthesia Back exam: Positive Straight Leg Raise: Left - Neurological Exam Neurological exam: Present: alert, oriented X3, CN II-XII intact, normal gait - Psychiatric Psychiatric exam: Present: normal affect, normal mood - Skin Skin exam: Present: warm, dry, intact, normal color ED Course Vital Signs 01/05/21 19:53 Temperature 99.3 F Pulse Rate 94 H Respiratory 18 Rate Blood Pressure 108/65 O2 Sat by Pulse 99 Oximetry ED Medical Decision Making - Lab Data Labs 01/05/21 Unknown Urine Color Yellow Urine Turbidity Clear Urine pH 6.0 Ur Specific [place] 1.009 Urine Protein <15 mg/dl Urine Glucose (UA) Neg Urine Ketones Neg Urine Blood Sm Urine Nitrite Neg Urine Bilirubin Neg Urine Urobilinogen < 2.0 Ur Leukocyte Esterase Neg Urine WBC (Auto) 2.0 Urine RBC (Auto) 1.0 U Epithel Cells (Auto) 2.0 Urine Bacteria (Auto) 1+ Urine Mucus Few Urine HCG, Qual Negative - Medical Decision Making ua noted normal, pt decline vaginal exam, plan, given nsaid for back pain , will dc to home with rx , pt will follow up with pcp in 2-3 days , return to ed if symptoms worsen. Critical care attestation.: If time is entered above; I have spent that time in minutes in the direct care of this critically ill patient, excluding procedure time. ED Disposition Clinical Impression: Dysuria Low back strain Qualifiers: Encounter type: initial encounter Qualified Code(s): S39.012A - Strain of muscle, fascia and tendon of lower back, initial encounter Disposition: DC-01 TO HOME OR SELFCARE Is pt being admited?: No Does the pt Need Aspirin: No Condition: Stable Instructions: Lumbosacral Strain, Lumbar Sprain, Low Back Sprain or Strain Rehab-SportsMed Prescriptions: metroNIDAZOLE [Flagyl] 500 mg PO BID 7 Days #14 tab Cyclobenzaprine HCl [Flexeril 5 MG TAB] 5 mg PO TID PRN #30 tab PRN Reason: Muscle Spasm Naproxen [Naprosyn] 500 mg PO BID PRN #30 tablet PRN Reason: back pain Menthol/Camphor [[place] Ointment] 1 applicatio TP TID PRN #1 tube PRN Reason: pain Referrals: JONI BAER MD [Staff Physician] - 3-5 Days Forms: Work/School Release Form(ED) Time of Disposition: 22:12
[2021-01-05 21:25] LABS: Bacteria,Urine 1+ /HPF (Negative); Bilirubin,Urine NEG (Negative); Blood,Urine SM (Negative); Color,Urine Yellow (Yellow); Mucus,Urine FEW /HPF; Protein,Urine <15 mg/dL mg/dL (Negative); Urobilinogen,Urine < 2.0 mg/dL (<2.0)
[2021-01-05 21:27] LABS: HCG Qualitative,Urine Negative (Negative)
[2021-01-05] MEDS ORDERED: KETOROLAC 30 MG/1 ML INJ IM ONE (22:02)
== END 2021-01-05 21:00 | disposition home or self-care (01) ==
LOC: ED 19:42
DX: S39.012A Strain of muscle, fascia and tendon of lower back, initial encounter (principal); R30.0 Dysuria; F17.200 Nicotine dependence, unspecified, uncomplicated; Z79.899 Other long term (current) drug therapy; X58.XXXA Exposure to other specified factors, initial encounter; Y93.89 Activity, other specified; Y92.89 Other specified places as the place of occurrence of the external cause; Y99.8 Other external cause status
CPT/HCPCS: 81001; 81025; 96372; 99283; J1885

== ENCOUNTER 2021-04-21 18:29 | Emergency (ER) | payer OTHER ==
[2021-04-21 21:28] LABS: Basophils % (Auto) 0.6 % (0.0-1.8); Eosinophils # (Auto) 0.1 K/mm3 (0.0-0.4); Eosinophils % (Auto) 1.3 % (0.0-4.3); Hematocrit 35.5 % (30.3-42.9); Hemoglobin 11.6 gm/dl (10.1-14.3); Lymphocytes # (Auto) 2.1 K/mm3 (1.2-5.4); Lymphocytes % (Auto) 30.5 % (13.4-35.0); Mean Corpuscular HGB Conc 33 % (30-34); Mean Corpuscular Volume 83 fl (79-97); Monocytes # (Auto) 0.4 K/mm3 (0.0-0.8); Monocytes % (Auto) 5.7 % (0.0-7.3); Platelet Count 221 K/mm3 (140-440); Red Blood Count 4.28 M/mm3 (3.65-5.03); Red Cell Distribution Width 12.9 % (13.2-15.2)
[2021-04-21 21:46] LABS: Alanine Aminotransferase 10 units/L (7-56); Albumin 4.4 g/dL (3.9-5); Blood Urea Nitrogen 11 mg/dL (7-17); Calcium 9.6 mg/dL (8.4-10.2); Hemolysis Index 4
[2021-04-21 21:47] LABS: BUN/Creatinine Ratio 18
[2021-04-21] MEDS ORDERED: HYOSCYAMINE SUBL 0.125 MG TAB SL ONE (22:30)
[2021-04-21] MEDS ORDERED: ONDANSETRON 4 MG/2 ML INJ IV STA (22:30)
--- NOTE | 2021-04-21 22:33 | Emergency Department Report ---
ED Abdominal Pain HPI - General Chief Complaint: Abdominal Pain Stated Complaint: ABD PAINS Time Seen by Provider: 04/21/21 22:29 Source: patient Mode of arrival: Ambulatory Limitations: No Limitations - History of Present Illness MD Complaint: abdominal pain -: Gradual Location: diffuse Radiation: none, LUQ, RUQ, epigastric Migration to: suprapubic Severity: mild, moderate Quality: cramping, aching, dull Consistency: constant Improves With: nothing Worsens With: nothing Associated Symptoms: nausea, vomiting. denies: diarrhea, constipation, dysuria, hematemesis, hematuria, anorexia - Related Data Previous Rx's Medication Instructions Recorded Last Taken Type Ibuprofen [Motrin] 800 mg PO Q8HR PRN #30 tablet 07/25/17 Unknown Rx Nitrofurantoin [place]/M-[place]ryst 100 mg PO Q12HR #14 capsule 07/25/17 Unknown Rx [Macrobid CAP] traMADoL [Ultram 50 MG tab] 50 mg PO Q6HR PRN #20 tablet 07/25/17 Unknown Rx Cetirizine HCl [ZyrTEC] 10 mg PO DAILY #30 capsule 08/25/18 Unknown Rx Ibuprofen 800 mg PO TID PRN #30 tablet 08/25/18 Unknown Rx Polymyxin B Sulf/Trimethoprim 10 ml OP Q4H 10 Days #10 ml 08/25/18 Unknown Rx [Polytrim Eye Drops] HYDROcodone/APAP 5-325 [[place] 1 each PO Q6HR PRN #15 tablet 03/05/19 Unknown Rx 5/325] Penicillin V Potassium 500 mg PO QID 10 Days #40 tablet 03/05/19 Unknown Rx Baclofen 20 mg PO Q8H PRN #30 tablet 04/08/19 Unknown Rx Ketorolac [Toradol] 10 mg PO Q8H PRN #20 tablet 04/08/19 Unknown Rx predniSONE [Deltasone] 60 mg PO QDAY #15 tab 04/08/19 Unknown Rx traMADoL [Ultram] 50 mg PO Q6HR PRN #12 tablet 04/08/19 Unknown Rx Cyclobenzaprine HCl [Flexeril 5 MG 5 mg PO TID PRN #30 tab 01/05/21 Unknown Rx TAB] Menthol/Camphor [[place] 1 applicatio TP TID PRN #1 tube 01/05/21 Unknown Rx Ointment] Naproxen [Naprosyn] 500 mg PO BID PRN #30 tablet 01/05/21 Unknown Rx metroNIDAZOLE [Flagyl] 500 mg PO BID 7 Days #14 tab 01/05/21 Unknown Rx traMADoL [Ultram] 50 mg PO Q6HR PRN #14 tablet 04/22/21 Unknown Rx Allergies Allergy/AdvReac Type Severity Reaction Status Date / Time No Known Allergies Allergy Verified 03/05/19 09:36 ED Review of Systems ROS: Stated complaint: ABD PAINS Other details as noted in HPI Comment: All other systems reviewed and negative ED Past Medical Hx - Past Medical History Previous Medical History?: No - Surgical History Past Surgical History?: No - Social History Smoking Status: Never Smoker Substance Use Type: Marijuana - Medications Home Medications: Home Medications Medication Instructions Recorded Confirmed Last Taken Type Ibuprofen [Motrin] 800 mg PO Q8HR PRN #30 tablet 07/25/17 Unknown Rx Nitrofurantoin [place]/M-[place] 100 mg PO Q12HR #14 capsule 07/25/17 Unknown Rx [Macrobid CAP] traMADoL [Ultram 50 MG tab] 50 mg PO Q6HR PRN #20 tablet 07/25/17 Unknown Rx Cetirizine HCl [ZyrTEC] 10 mg PO DAILY #30 capsule 08/25/18 Unknown Rx Ibuprofen 800 mg PO TID PRN #30 tablet 08/25/18 Unknown Rx Polymyxin B Sulf/Trimethoprim 10 ml OP Q4H 10 Days #10 ml 08/25/18 Unknown Rx [Polytrim Eye Drops] HYDROcodone/APAP 5-325 [[place] 1 each PO Q6HR PRN #15 tablet 03/05/19 Unknown Rx 5/325] Penicillin V Potassium 500 mg PO QID 10 Days #40 tablet 03/05/19 Unknown Rx Baclofen 20 mg PO Q8H PRN #30 tablet 04/08/19 Unknown Rx Ketorolac [Toradol] 10 mg PO Q8H PRN #20 tablet 04/08/19 Unknown Rx predniSONE [Deltasone] 60 mg PO QDAY #15 tab 04/08/19 Unknown Rx traMADoL [Ultram] 50 mg PO Q6HR PRN #12 tablet 04/08/19 Unknown Rx Cyclobenzaprine HCl [Flexeril 5 MG 5 mg PO TID PRN #30 tab 01/05/21 Unknown Rx TAB] Menthol/Camphor [[place] 1 applicatio TP TID PRN #1 tube 01/05/21 Unknown Rx Ointment] Naproxen [Naprosyn] 500 mg PO BID PRN #30 tablet 01/05/21 Unknown Rx metroNIDAZOLE [Flagyl] 500 mg PO BID 7 Days #14 tab 01/05/21 Unknown Rx traMADoL [Ultram] 50 mg PO Q6HR PRN #14 tablet 04/22/21 Unknown Rx ED Physical Exam - General Limitations: No Limitations General appearance: alert, in no apparent distress - Head Head exam: Present: atraumatic, normocephalic - Eye Eye exam: Present: normal appearance, PERRL, EOMI Pupils: Present: normal accommodation - ENT ENT exam: Present: normal exam, normal orophraynx, mucous membranes moist, TM's normal bilaterally - Neck Neck exam: Present: normal inspection, full ROM, lymphadenopathy - Respiratory Respiratory exam: Present: normal lung sounds bilaterally, chest wall tenderness . Absent: respiratory distress - Cardiovascular Cardiovascular Exam: Present: regular rate, normal rhythm. Absent: systolic murmur, diastolic murmur, rubs, gallop - GI/Abdominal GI/Abdominal exam: Present: soft, tenderness (diffuse), normal bowel sounds - Extremities Exam Extremities exam: Present: normal inspection - Back Exam Back exam: Present: normal inspection - Neurological Exam Neurological exam: Present: alert, oriented X3 - Psychiatric Psychiatric exam: Present: normal affect, normal mood - Skin Skin exam: Present: warm, dry, intact, normal color. Absent: rash ED Course Vital Signs 04/21/21 04/22/21 20:37 01:15 Temperature 99.2 F Pulse Rate 73 Respiratory 18 19 Rate Blood Pressure 108/63 O2 Sat by Pulse 100 Oximetry ED Medical Decision Making - Lab Data Result diagrams: 04/21/21 20:50 04/21/21 20:50 - Radiology Data Radiology results: report reviewed [address] [place] [address] Cat Scan Report Signed Patient: WENDI LOCKHART MR# : [id number] : 1975 Acct:[id number] Age/Sex: 45 / F ADM Date: 04/21/21 Loc: ED Attending Dr: Ordering Physician: TANVIR LEIVA Date of Service: 04/21/21 Procedure(s): CT abdomen pelvis w con Accession Number(s): [id number] cc: TANVIR LEIVA CT ABDOMEN AND PELVIS WITH CONTRAST INDICATION / CLINICAL INFORMATION: abdominal pain upper. TECHNIQUE: Axial CT images were obtained through the abdomen and pelvis after 100 cc Omnipaque 300 milligrams percent IV contrast. All CT scans at this location are performed using CT dose reduction for ALARA by means of automated exposure control. COMPARISON: None available. FINDINGS: LOWER CHEST: No significant abnormality. LIVER: No significant abnormality. GALLBLADDER: No significant abnormality. BILE DUCTS: No significant abnormality. PANCREAS: No significant abnormality. SPLEEN: No significant abnormality. ADRENALS: 4.7 cm left adrenal mass with peripheral calcification RIGHT KIDNEY and URETER: Probable punctate renal calcification LEFT KIDNEY and URETER: No significant abnormality. STOMACH and SMALL BOWEL: No significant abnormality. COLON: No significant abnormality. APPENDIX: Not identified PERITONEUM: No free fluid. No free air. No fluid collection. LYMPH NODES: No significant adenopathy. AORTA and ARTERIES: No significant abnormality. IVC and VEINS: No significant abnormality. URINARY BLADDER: No significant abnormality. REPRODUCTIVE ORGANS: No significant abnormality. ADDITIONAL FINDINGS: None. SKELETAL SYSTEM: No significant abnormality. IMPRESSION: 1. Left adrenal mass with peripheral calcification, benign malignant processes should be considered. MR may be of benefit for further evaluation 2. Right nephrolithiasis Signer Name: Anil Pérez MD Signed: 04/21/2021 11:20 PM Workstation Name: [id number] Transcribed By: WG Dictated By: Anil Pérez MD Electronically Authenticated By: Anil Pérez MD Signed Date/Time: 04/21/212319 DD/ 11 TD/TT: Print - Medical Decision Making This patient presents with abdominal pain of unclear etiology. A CT scan was performed to evaluate for potential causes of the abdominal pain, however, neither the clinical exam nor the CT has identified an emergent etiology for the abdominal pain. Specifically, given the benign exam, the laboratory studies, and unremarkable CT, I have a very low suspicion for appendicitis, ischemic bowel, bowel perforation, or any other life threatening disease. I have discussed with the patient the level of uncertainty with undifferentiated abdominal pain and clearly explained the need to follow-up as noted on the discharge instructions, or return to the Emergency Department immediately if the pain worsens, develops fever, persistent and uncontrollable vomiting, or for any new symptoms or concerns. Critical care attestation.: If time is entered above; I have spent that time in minutes in the direct care of this critically ill patient, excluding procedure time. ED Disposition Clinical Impression: Abdominal pain, Right nephrolithiasis Disposition: TO HOME OR SELFCARE Is pt being admited?: No Does the pt Need Aspirin: No Condition: Stable Instructions: Low-Purine Eating Plan, Abdominal Pain, Adult, Kidney Stones, [id number], Abdominal Pain (ED) Additional Instructions: Patient to follow-up with the motor vehicle field representative to further evaluate your adrenal mass/lesion. Also positive primary care doctor or you or your urology to keep an eye on your kidney stone which will start to cause some discomfort once he begins to relocate from the kidney. Prescriptions: traMADoL [Ultram] 50 mg PO Q6HR PRN #14 tablet PRN Reason: Pain Referrals: [facility] [Provider Group] - 3-5 Days CONRAD PECK MD [Primary Care Provider] - 3-5 Days
[2021-04-21 23:15] LABS: Bacteria,Urine 1+ /HPF (Negative); Bilirubin,Urine NEG (Negative); Blood,Urine SM (Negative); Color,Urine Yellow (Yellow); Mucus,Urine FEW /HPF
--- NOTE | 2021-04-21 23:24 | Cat Scan Report ---
CT ABDOMEN AND PELVIS WITH CONTRAST INDICATION / CLINICAL INFORMATION: abdominal pain upper. TECHNIQUE: Axial CT images were obtained through the abdomen and pelvis after 100 cc Omnipaque 300 milligrams pe rcent IV contrast. All CT scans at this location are performed using CT dose reduction for ALARA by means of automated exposure control. COMPARISON: None available. FINDINGS: LOWER CHEST: No significant abnormality. LIVER: No significant abnormality. GALLBLADDER: No significant abnormality. BILE DUCTS: No significant abnormality. PANCREAS: No significant abnormality. SPLEEN: No significant abnormality. ADRENALS: 4.7 cm left adrenal mass with peripheral calcification RIGHT KIDNEY and URETER: Probable punctate renal calcification LEFT KIDNEY and URETER: No significant abnormality. STOMACH and SMALL BOWEL: No significant abnormality. COLON: No significant abnormality. APPENDIX: Not identified PERITONEUM: No free fluid. No free air. No fluid collection. LYMPH NODES: No significant adenopathy. AORTA and ARTERIES: No significant abnormality. IVC and VEINS: No significant abnormality. URINARY BLADDER: No significant abnormality. REPRODUCTIVE ORGANS: No significant abnormality. ADDITIONAL FINDINGS: None. SKELETAL SYSTEM: No significant abnormality. IMPRESSION: 1. Left adrenal mass with peripheral calcification, benign malignant processes should be considered. MR may be of benefit for further evaluation 2. Right nephrolithiasis Signer Name: Anil Pérez MD Signed: 04/21/2021 11:20 PM Workstation Name: [id number]
[2021-04-22] MEDS ORDERED: KETOROLAC 30 MG/1 ML INJ IV ONE (01:11)
[2021-04-22] MEDS ORDERED: KETOROLAC 30 MG/1 ML INJ ONE (01:12)
[2021-04-22 02:04] VITALS: BP 126/71
== END 2021-04-22 02:05 | disposition home or self-care (01) ==
LOC: ED 18:29
DX: N20.0 Calculus of kidney (principal); R10.13 Epigastric pain; F12.90 Cannabis use, unspecified, uncomplicated; Z79.899 Other long term (current) drug therapy
CPT/HCPCS: 36415; 74177; 80053; 81001; 83690; 84703; 85025; 96374; 96375; 99284; J1885; J2405; Q9967

== ENCOUNTER 2021-10-08 13:37 | Emergency (ER) | payer SELFPAY ==
[2021-10-08 14:07] VITALS: BP 130/68
[2021-10-08] MEDS ORDERED: SODIUM CHLORIDE 0.9% 1000 ML 1,000 ML IV ONE (14:13)
[2021-10-08] MEDS ORDERED: KETOROLAC 30 MG/1 ML INJ IV ONE (14:13)
[2021-10-08 14:48] LABS: Basophils % (Auto) 0.7 % (0.0-1.8); Eosinophils # (Auto) 0.1 K/mm3 (0.0-0.4); Eosinophils % (Auto) 1.8 % (0.0-4.3); Hematocrit 34.9 % (30.3-42.9); Hemoglobin 11.8 gm/dl (10.1-14.3); Lymphocytes # (Auto) 1.5 K/mm3 (1.2-5.4); Lymphocytes % (Auto) 37.5 % (13.4-35.0); Mean Corpuscular HGB Conc 34 % (30-34); Mean Corpuscular Volume 82 fl (79-97); Monocytes # (Auto) 0.2 K/mm3 (0.0-0.8); Monocytes % (Auto) 5.8 % (0.0-7.3); Platelet Count 206 K/mm3 (140-440); Red Blood Count 4.26 M/mm3 (3.65-5.03); Red Cell Distribution Width 12.7 % (13.2-15.2)
[2021-10-08 15:14] LABS: Alanine Aminotransferase 10 units/L (7-56); Albumin 4.4 g/dL (3.9-5); BUN/Creatinine Ratio 17; Blood Urea Nitrogen 10 mg/dL (7-17); Calcium 9.3 mg/dL (8.4-10.2); Hemolysis Index 18
[2021-10-08 15:34] LABS: HCG Qualitative,Urine Negative (Negative)
[2021-10-08 15:46] LABS: Color,Urine RED (Yellow)
[2021-10-08 15:48] LABS: Bilirubin,Urine TNR (Negative); Blood,Urine TNR (Negative)
[2021-10-08 15:49] LABS: PH,Urine TNR (5.0-7.0); Protein,Urine TNR mg/dL (Negative); Urobilinogen,Urine TNR mg/dL (<2.0)
[2021-10-08 15:52] LABS: Mucus,Urine FEW /HPF
[2021-10-08 15:53] LABS: RBC,Urine > 182.0 /HPF (0.0-6.0); WBC,Urine < 1.0 /HPF (0.0-6.0)
--- NOTE | 2021-10-08 16:03 | Emergency Department Report ---
ED Abdominal Pain HPI - General Chief Complaint: Abdominal Pain Stated Complaint: BLOOD IN URINE, PAIN IN BACK LW ABDOMIN Time Seen by Provider: 10/08/21 14:10 Source: patient Mode of arrival: Ambulatory Limitations: No Limitations - History of Present Illness Initial Comments: This is a 45-year-old female nontoxic, well nourished in appearance, no acute signs of distress presents to the ED with c/o of dysuria, flank pain, pelvic pressure, hematuria times several days. Patient stated has history of kidney stones and symptoms are similar. Patient denies any vaginal discharge, bleeding, ulcers or lesions. Patient denies any radiation of pain. Patient denies any abdominal pain. Patient denies any nausea, vomiting, chest pain, shortness of breathe, fever, chills, headache, back pain, numbness, tingling, stiff neck. Patient denies any other urinary symptoms. Patient denies any allergies. MD Complaint: flank pain -: days(s) Radiation: none Migration to: no migration Severity: mild Severity scale (0 -10): 3 Quality: cramping Consistency: constant Improves With: nothing Worsens With: other (urination) Associated Symptoms: dysuria. denies: nausea, vomiting, diarrhea, fever, chills, constipation, hematemesis, hematochezia, melena, hematuria, anorexia, syncope - Related Data Previous Rx's Medication Instructions Recorded Last Taken Type Ibuprofen [Motrin] 800 mg PO Q8HR PRN #30 tablet 07/25/17 Unknown Rx Nitrofurantoin [place]/M-Cryst 100 mg PO Q12HR #14 capsule 07/25/17 Unknown Rx [Macrobid CAP] traMADoL [Ultram 50 MG tab] 50 mg PO Q6HR PRN #20 tablet 07/25/17 Unknown Rx Cetirizine HCl [ZyrTEC] 10 mg PO DAILY #30 capsule 08/25/18 Unknown Rx Ibuprofen 800 mg PO TID PRN #30 tablet 08/25/18 Unknown Rx Polymyxin B Sulf/Trimethoprim 10 ml OP Q4H 10 Days #10 ml 08/25/18 Unknown Rx [Polytrim Eye Drops] HYDROcodone/APAP 5-325 [[place] 1 each PO Q6HR PRN #15 tablet 03/05/19 Unknown Rx 5/325] Penicillin V Potassium 500 mg PO QID 10 Days #40 tablet 03/05/19 Unknown Rx Baclofen 20 mg PO Q8H PRN #30 tablet 04/08/19 Unknown Rx Ketorolac [Toradol] 10 mg PO Q8H PRN #20 tablet 04/08/19 Unknown Rx predniSONE [Deltasone] 60 mg PO QDAY #15 tab 04/08/19 Unknown Rx traMADoL [Ultram] 50 mg PO Q6HR PRN #12 tablet 04/08/19 Unknown Rx Cyclobenzaprine HCl [Flexeril 5 MG 5 mg PO TID PRN #30 tab 01/05/21 Unknown Rx TAB] Menthol/Camphor [[place] 1 applicatio TP TID PRN #1 tube 01/05/21 Unknown Rx Ointment] Naproxen [Naprosyn] 500 mg PO BID PRN #30 tablet 01/05/21 Unknown Rx metroNIDAZOLE [Flagyl] 500 mg PO BID 7 Days #14 tab 01/05/21 Unknown Rx traMADoL [Ultram] 50 mg PO Q6HR PRN #14 tablet 04/22/21 Unknown Rx Ketorolac [Toradol] 10 mg PO Q6H PRN #12 tablet 10/08/21 Unknown Rx cephALEXin [Keflex] 500 mg PO Q8HR #21 cap 10/08/21 Unknown Rx Allergies Allergy/AdvReac Type Severity Reaction Status Date / Time No Known Allergies Allergy Verified 03/05/19 09:36 ED Review of Systems ROS: Stated complaint: BLOOD IN URINE, PAIN IN BACK LW ABDOMIN Other details as noted in HPI Comment: All other systems reviewed and negative Constitutional: denies: chills, fever Eyes: denies: eye pain, eye discharge, vision change ENT: denies: ear pain, throat pain Respiratory: denies: cough, shortness of breath, wheezing Cardiovascular: denies: chest pain, palpitations Endocrine: no symptoms reported Gastrointestinal: denies: abdominal pain, nausea, vomiting, diarrhea, constipation, hematemesis, melena, hematochezia Genitourinary: dysuria, hematuria. denies: urgency, frequency, discharge, abnormal menses, dyspareunia Musculoskeletal: denies: back pain, joint swelling, arthralgia Skin: denies: rash, lesions Neurological: denies: headache, weakness, paresthesias Psychiatric: denies: anxiety, depression Hematological/Lymphatic: denies: easy bleeding, easy bruising ED Past Medical Hx - Past Medical History Previous Medical History?: No - Surgical History Past Surgical History?: No - Social History Smoking Status: Never Smoker Substance Use Type: Marijuana - Medications Home Medications: Home Medications Medication Instructions Recorded Confirmed Last Taken Type Ibuprofen [Motrin] 800 mg PO Q8HR PRN #30 tablet 07/25/17 Unknown Rx Nitrofurantoin [place]/M-Cryst 100 mg PO Q12HR #14 capsule 07/25/17 Unknown Rx [Macrobid CAP] traMADoL [Ultram 50 MG tab] 50 mg PO Q6HR PRN #20 tablet 07/25/17 Unknown Rx Cetirizine HCl [ZyrTEC] 10 mg PO DAILY #30 capsule 08/25/18 Unknown Rx Ibuprofen 800 mg PO TID PRN #30 tablet 08/25/18 Unknown Rx Polymyxin B Sulf/Trimethoprim 10 ml OP Q4H 10 Days #10 ml 08/25/18 Unknown Rx [Polytrim Eye Drops] HYDROcodone/APAP 5-325 [[place] 1 each PO Q6HR PRN #15 tablet 03/05/19 Unknown Rx 5/325] Penicillin V Potassium 500 mg PO QID 10 Days #40 tablet 03/05/19 Unknown Rx Baclofen 20 mg PO Q8H PRN #30 tablet 04/08/19 Unknown Rx Ketorolac [Toradol] 10 mg PO Q8H PRN #20 tablet 04/08/19 Unknown Rx predniSONE [Deltasone] 60 mg PO QDAY #15 tab 04/08/19 Unknown Rx traMADoL [Ultram] 50 mg PO Q6HR PRN #12 tablet 04/08/19 Unknown Rx Cyclobenzaprine HCl [Flexeril 5 MG 5 mg PO TID PRN #30 tab 01/05/21 Unknown Rx TAB] Menthol/Camphor [[place] 1 applicatio TP TID PRN #1 tube 01/05/21 Unknown Rx Ointment] Naproxen [Naprosyn] 500 mg PO BID PRN #30 tablet 01/05/21 Unknown Rx metroNIDAZOLE [Flagyl] 500 mg PO BID 7 Days #14 tab 01/05/21 Unknown Rx traMADoL [Ultram] 50 mg PO Q6HR PRN #14 tablet 04/22/21 Unknown Rx Ketorolac [Toradol] 10 mg PO Q6H PRN #12 tablet 10/08/21 Unknown Rx cephALEXin [Keflex] 500 mg PO Q8HR #21 cap 10/08/21 Unknown Rx ED Physical Exam - General Limitations: No Limitations General appearance: alert, in no apparent distress - Head Head exam: Present: atraumatic, normocephalic - Eye Eye exam: Present: normal appearance - Neck Neck exam: Present: normal inspection, full ROM. Absent: lymphadenopathy - Respiratory Respiratory exam: Present: normal lung sounds bilaterally. Absent: respiratory distress, wheezes, rales, rhonchi, stridor, chest wall tenderness, accessory muscle use, decreased breath sounds, prolonged expiratory - Cardiovascular Cardiovascular Exam: Present: regular rate, normal rhythm, normal heart sounds. Absent: bradycardia, tachycardia, irregular rhythm, systolic murmur, diastolic murmur, rubs, gallop - GI/Abdominal GI/Abdominal exam: Present: soft, normal bowel sounds. Absent: distended, tenderness, guarding, rebound, rigid, diminished bowel sounds - Extremities Exam Extremities exam: Present: normal inspection, full ROM, normal capillary refill. Absent: tenderness - Back Exam Back exam: Present: normal inspection, full ROM. Absent: tenderness, CVA tenderness (R), CVA tenderness (L), muscle spasm, paraspinal tenderness, vertebral tenderness, rash noted - Neurological Exam Neurological exam: Present: alert, oriented X3, normal gait - Psychiatric Psychiatric exam: Present: normal affect, normal mood - Skin Skin exam: Present: warm, dry, intact, normal color. Absent: rash ED Course Vital Signs 10/08/21 14:03 Temperature 98.6 F Pulse Rate 77 Respiratory 18 Rate Blood Pressure 130/68 [Right] O2 Sat by Pulse 99 Oximetry - Reevaluation(s) Reevaluation #1: 10/08/21 16:03 Patient is speaking in full sentences with no signs of distress noted. ED Medical Decision Making - Lab Data Result diagrams: 10/08/21 14:31 10/08/21 14:31 Lab Results 10/08/21 10/08/21 10/08/21 Range/Units 14:31 14:31 15:06 WBC 3.9 L (4.5-11.0) K/mm3 RBC 4.26 (3.65-5.03) M/mm3 Hgb 11.8 (10.1-14.3) gm/dl Hct 34.9 (30.3-42.9) % MCV 82 (79-97) fl MCH 28 (28-32) pg MCHC 34 (30-34) % RDW 12.7 L (13.2-15.2) % Plt Count 206 (140-440) K/mm3 Lymph % (Auto) 37.5 H (13.4-35.0) % [place] % (Auto) 5.8 (0.0-7.3) % Eos % (Auto) 1.8 (0.0-4.3) % Baso % (Auto) 0.7 (0.0-1.8) % Lymph # (Auto) 1.5 (1.2-5.4) K/mm3 [place] # (Auto) 0.2 (0.0-0.8) K/mm3 Eos # (Auto) 0.1 (0.0-0.4) K/mm3 Baso # (Auto) 0.0 (0.0-0.1) K/mm3 Seg Neutrophils % 54.2 (40.0-70.0) % Seg Neutrophils # 2.1 (1.8-7.7) K/mm3 Sodium 143 (137-145) mmol/L Potassium 3.9 (3.6-5.0) mmol/L Chloride 105.0 (98-107) mmol/L Carbon Dioxide 24 (22-30) mmol/L Anion Gap 18 mmol/L BUN 10 (7-17) mg/dL Creatinine 0.6 (0.6-1.2) mg/dL Estimated GFR > 60 ml/min BUN/Creatinine Ratio 17 % Glucose 107 H (65-100) mg/dL Calcium 9.3 (8.4-10.2) mg/dL Total Bilirubin 0.20 (0.1-1.2) mg/dL AST 13 (5-40) units/L ALT 10 (7-56) units/L Alkaline Phosphatase 80 (35-129) units/L Total Protein 7.1 (6.3-8.2) g/dL Albumin 4.4 (3.9-5) g/dL Albumin/Globulin Ratio 1.6 % Urine Color Red (Yellow) Urine Turbidity Turbid (Clear) Urine pH TNR Ur Specific [place] 1.015 (1.003-1.030) Urine Protein TNR Urine Glucose (UA) TNR Urine Ketones TNR Urine Blood TNR Urine Nitrite TNR Ur Reducing Substances Not Reportable Urine Bilirubin TNR Urine Ictotest Not Reportable Urine Urobilinogen TNR Ur Leukocyte Esterase TNR Urine WBC (Auto) < 1.0 (0.0-6.0) /HPF Urine RBC (Auto) > 182.0 (0.0-6.0) /HPF Urine Mucus Few /HPF Urine Yeast (Budding) 2+ /HPF Urine HCG, Qual Negative (Negative) - Radiology Data [facility] [address] [place] [address] Cat Scan Report Signed Patient: WENDI LOCKHART MR# : [id number] : 1975 Acct:[id number] Age/Sex: 45 / F ADM Date: 10/08/21 Loc: ED Attending Dr: Ordering Physician: CHAN MCKENZIE NP Date of Service: 10/08/21 Procedure(s): CT abdomen pelvis wo con Accession Number(s): [id number] cc: CHAN MCKENZIE NP CT ABDOMEN AND PELVIS WITHOUT CONTRAST INDICATION / CLINICAL INFORMATION: "Gross" Hematuria, dysuria, and bilateral flank pain. TECHNIQUE: Axial CT images were obtained through the abdomen and pelvis without IV contrast. All CT scans at this location are performed using CT dose reduction for ALARA by means of automated exposure control. COMPARISON: 04/21/2021 FINDINGS: LOWER CHEST: No significant abnormality. LIVER: No significant abnormality. GALLBLADDER: No significant abnormality. PANCREAS: No significant abnormality. SPLEEN: No significant abnormality. ADRENALS: Peripherally calcified 4.9 cm left adrenal lesion, not significantly changed with reference exam. RIGHT KIDNEY / URETER: Nonobstructive right nephrolithiasis. LEFT KIDNEY / URETER: No significant abnormality. STOMACH / SMALL BOWEL: No significant abnormality. COLON: No significant abnormality. APPENDIX: No significant abnormality. PERITONEUM: No free fluid, free air or organized collection. LYMPH NODES: No significant adenopathy. AORTA / ARTERIES/ VEINS: No significant abnormality. URINARY BLADDER: No significant abnormality. REPRODUCTIVE ORGANS: No significant abnormality. ADDITIONAL FINDINGS: None. SKELETAL SYSTEM: No significant abnormality. IMPRESSION: 1. No acute abnormality. 2. Nonobstructive right nephrolithiasis. 3. 4.9 cm peripherally calcified with central low attenuation left adrenal lesion, similar with reference exam. Although findings are favored represent a benign process, further evaluation with CT or MRI adrenal mass protocol, which should be performed in outpatient setting, would likely be of benefit. Signer Name: Valentín Campos MD Signed: 10/08/2021 4:45 PM Workstation Name: [id number] Transcribed By: SB Dictated By: VALENTÍN CAMPOS MD Electronically Authenticated By: VALENTÍN CAMPOS MD Signed Date/Time: 10/08/211644 DD/ 40 TD/TT: - Medical Decision Making This is a 45-year-old female that presents with dysuria and kidney stone. Patient is stable and was examined by me. There is no abdominal tenderness. Negative signs of symptoms of appendicitis. Labs obtained. UA obtained. CT of abdomen obtained and dictated by the radiologist. Patient is notified of the report with no questions noted by the patient. Vital signs are stable prior to discharge. Patient received medical treatment in the ED which patient stated symptoms has resovled and subsided. Was instructed note to operate any machinery due to possible drowsiness and stated someone will drive the patient home. A by mouth challenge has been obtained and patient tolerated well with no nausea vomiting. Patient was also instructed to Follow-up with a urologist doctor in 3-5 days or if symptoms worsen and continue return to emergency room as soon as possible. At time of discharge, the patient does not seem toxic or ill in appearance. No acute signs of distress noted. Patient agrees to discharge treatment plan of care. No further questions noted by the patient. Critical care attestation.: If time is entered above; I have spent that time in minutes in the direct care of this critically ill patient, excluding procedure time. ED Disposition Clinical Impression: Dysuria, Kidney stone Disposition: 01 HOME / SELF CARE / HOMELESS Is pt being admited?: No Does the pt Need Aspirin: No Condition: Stable Instructions: Abdominal Pain (ED), Kidney Stones Additional Instructions: Follow-up with a urologist doctor in 3-5 days or if symptoms worsen and continue return to emergency room as soon as possible. Prescriptions: cephALEXin [Keflex] 500 mg PO Q8HR #21 cap Ketorolac [Toradol] 10 mg PO Q6H PRN #12 tablet PRN Reason: Pain Referrals: PRIMARY CARE, [Primary Care Provider] - 3-5 Days RUDDY CUNHA MD [Staff Physician] - 3-5 Days HEIDE JOHNSON MD [Staff Physician] - 3-5 Days Forms: Work/School Release Form(ED) Time of Disposition: 17:03
--- NOTE | 2021-10-08 16:50 | Cat Scan Report ---
CT ABDOMEN AND PELVIS WITHOUT CONTRAST INDICATION / CLINICAL INFORMATION: "Gross" Hematuria, dysuria, and bilateral flank pain. TECHNIQUE: Axial CT images were obtained through the abdomen and pelvis without IV contrast. All CT scans at this location are performed using CT dose reduction for ALARA by means of automated exposure control. COMPARISON: 04/21/2021 FINDINGS: LOWER CHEST: No significant abnormality. LIVER: No significant abnormality. GALLBLADDER: No significant abnormality. PANCREAS: No significant abnormality. SPLEEN: No significant abnormality. ADRENALS: Peripherally calcified 4.9 cm left adrenal lesion, not significantly changed with reference exam. RIGHT KIDNEY / URETER: Nonobstructive right nephrolithiasis. LEFT KIDNEY / URETER: No significant abnormality. STOMACH / SMALL BOWEL: No significant abnormality. COLON: No significant abnormality. APPENDIX: No significant abnormality. PERITONEUM: No free fluid, free air or organized collection. LYMPH NODES: No significant adenopathy. AORTA / ARTERIES/ VEINS: No significant abnormality. URINARY BLADDER: No significant abnormality. REPRODUCTIVE ORGANS: No significant abnormality. ADDITIONAL FINDINGS: None. SKELETAL SYSTEM: No significant abnormality. IMPRESSION: 1. No acute abnormality. 2. Nonobstructive right nephrolithiasis. 3. 4.9 cm peripherally calcified with central low attenuation left adrenal lesion, similar with refe rence exam. Although findings are favored represent a benign process, further evaluation with CT or M RI adrenal mass protocol, which should be performed in outpatient setting, would likely be of benefit . Signer Name: Valentín Campos MD Signed: 10/08/2021 4:45 PM Workstation Name: [id number]
[2021-10-08] MEDS ORDERED: KETOROLAC 30 MG/1 ML INJ ONE (17:30)
== END 2021-10-08 18:34 | disposition home or self-care (01) ==
LOC: ED 13:37
DX: N20.0 Calculus of kidney (principal)
CPT/HCPCS: 36415; 74176; 80053; 81001; 81025; 85025; 96361; 96374; 99284; J1885; J7030; Q0162